=== PATIENT | female | born 2005 | race African-American/Black ===

== ENCOUNTER 2024-01-23 08:19 | Emergency (ER) | payer SELFPAY ==
[~2024-01-23] VITALS: Ht 162.6 cm; Wt 54.4 kg
[2024-01-23 08:22] VITALS: PULSE 126; O2SAT 98
[2024-01-23 08:25] VITALS: BP 111/73; RESP 16; TEMP 98.9; O2SAT 100
[2024-01-23 09:02] LABS: CHLORIDE 103 mEq/L (98-107); POTASSIUM 3.4 mEq/L (3.5-5.1); SODIUM 135 mEq/L (136-145)
[2024-01-23 09:03] LABS: CARBON DIOXIDE 28 mEq/L (21-32)
[2024-01-23 09:04] LABS: CALCIUM 9.4 mg/dL (8.7-10.4)
[2024-01-23 09:08] LABS: CREATININE 0.8 mg/dL (0.6-1.0); GLUCOSE 87 mg/dL (70-105); UREA NITROGEN BLOOD 9 mg/dL (9-23)
[2024-01-23 09:19] LABS: TROPONIN I HIGH SENSITIVITY < 4 ng/L (3.0-34)
[2024-01-23 09:36] LABS: HEMATOCRIT. 36.3 % (36.0-48.0); HEMOGLOBIN. 12.2 g/dL (12.0-16.0); MEAN CORPUSCULAR HGB CONC 33.6 g/dL (31.0-37.0); MEAN CORPUSCULAR VOLUME 86.5 fL (81.0-99.0); PLATELET 275 x1000/uL (130-400); RED BLOOD CELL COUNT 4.19 mill/uL (4.2-5.4); RED CELL DISTRIBUTION WIDTH 14.9 % (11.6-14.6); WHITE BLOOD COUNT 18.3 x1000/uL (4.5-11.0)
[2024-01-23 09:41] LABS: DIFFERENTIAL COMMENT 1
[2024-01-23 10:52] LABS: PLATELET ESTIMATE NORMAL
[2024-01-23] MEDS ORDERED: KETOROLAC 30MG/ML VIAL IV NR (11:24)
[2024-01-23] MEDS ORDERED: SODIUM CHLORIDE 0.9% 1,000 ML IV ONE (11:30)
[2024-01-24] MEDS ORDERED: BENZ100C86 MT (12:16)
== END 2024-01-23 12:32 | disposition left against medical advice (07) ==
LOC: ER 08:19
DX: R53.1 Weakness (principal); Z53.21 Procedure and treatment not carried out due to patient leaving prior to being seen by health care provider
CPT/HCPCS: 36415; 80048; 84484; 85025; 93005; 99283